=== PATIENT | female | born 1960 | race African-American/Black ===

== ENCOUNTER 2017-06-20 12:25 | Emergency (ER) | payer SELFPAY ==
[2017-06-20] MEDS ORDERED: ASPIRIN 81 MG TABLET, CHEWABLE PO ONE (12:43)
--- NOTE | 2017-06-20 12:54 | ER Document Report ---
ED Medical Screen (RME) - General Chief Complaint: Chest Pain Stated Complaint: CHEST PAIN Time Seen by Provider: 06/20/17 12:42 Notes: RME DISCLOSURE I have seen this patient as part of a Rapid Medical Evaluation and, if applicable, placed any initially appropriate orders. The patient will be seen and fully evaluated, including a full history and physical exam, by a provider ( in Main ED or Fast Track) when a room becomes available. 56F here w several days of L sided non rad CP worse with breathing but not with exertion. She recently traveled via car to [place] which is a [address] She has no prior history of PE DVT or MD. - Related Data Allergies/Adverse Reactions: Sulfa (Sulfonamide Antibiotics) Allergy (Verified 06/20/17 12:28) Past Medical History - Social History Chew tobacco use (# tins/day): No Frequency of alcohol use: Heavy Drug Abuse: None Renal/ Medical History: Denies: Hx Peritoneal Dialysis Physical Exam - Vital signs Vitals: Temp Pulse Resp BP Pulse Ox 98.1 F 71 16 125/71 95 06/20/17 12:36 06/20/17 12:36 06/20/17 12:36 06/20/17 12:36 06/20/17 12:36 Course - Vital Signs Vital signs: Temp Pulse Resp BP Pulse Ox 98.1 F 71 16 125/71 95 06/20/17 12:36 06/20/17 12:36 06/20/17 12:36 06/20/17 12:36 06/20/17 12:36
[2017-06-20 13:11] LABS: ABSOLUTE BASOPHILS # (AUTO) 0.1 10^3/uL (0.0-0.2); ABSOLUTE EOSINOPHILS # (AUTO) 0.1 10^3/uL (0.0-0.6); ABSOLUTE MONOCYTES (AUTO) 0.4 10^3/uL (0.1-1.4); ABSOLUTE NEUT (AUTO) 2.2 10^3/uL (1.7-8.2); BASOPHILS % (AUTO) 1.2 % (0-2); EOSINOPHILS % (AUTO) 2.4 % (0-6); HEMATOCRIT 47.5 % (36.0-47.0); HEMOGLOBIN 15.7 g/dL (12.0-15.5); LYMPHOCYTES % (AUTO) 51.1 % (13-45); MEAN CORPUSCULAR HEMOGLOBIN 27.8 pg (27.0-33.4); MEAN CORPUSCULAR VOLUME 84 fl (80-97); MONOCYTES % (AUTO) 7.3 % (3-13); PLATELET COUNT 322 10^3/uL (150-450); RED BLOOD COUNT 5.65 10^6/uL (3.72-5.28); TOTAL CELLS COUNTED % (AUTO) 100 %; WHITE BLOOD COUNT 5.8 10^3/uL (4.0-10.5)
[2017-06-20 13:30] LABS: ANION GAP 9 (5-19); BLOOD UREA NITROGEN 10 mg/dL (7-20); CALCIUM 9.3 mg/dL (8.4-10.2); CARBON DIOXIDE 28 mmol/L (22-30); CHLORIDE 106 mmol/L (98-107); GLUCOSE 99 mg/dL (75-110); POTASSIUM 4.4 mmol/L (3.6-5.0); SODIUM 142.9 mmol/L (137-145)
--- NOTE | 2017-06-20 13:44 | RADIOLOGY REPORT (SQ) ---
EXAM DESCRIPTION: CHEST PA/LAT COMPLETED DATE/TIME: 06/20/2017 1:33 pm REASON FOR STUDY: L sided CP COMPARISON: None. EXAM PARAMETERS: NUMBER OF VIEWS: two views TECHNIQUE: Digital Frontal and Lateral radiographic views of the chest acquired. RADIATION DOSE: NA LIMITATIONS: none FINDINGS: LUNGS AND PLEURA: Mild interstitial prominence, probably chronic. No focal infiltrates, m asses or pneumothorax. No pleural effusion. MEDIASTINUM AND HILAR STRUCTURES: No masses or contour abnormalities. HEART AND VASCULAR STRUCTURES: Heart normal size. No evidence for failure. BONES: No acute findings. Degenerative changes in the spine. HARDWARE: None in the chest. OTHER: No other significant finding. IMPRESSION: NO SIGNIFICANT RADIOGRAPHIC FINDING IN THE CHEST. TECHNICAL DOCUMENTATION: JOB ID: [id number] [employer]- All Rights Reserved Reading location - IP/workstation name: [email or web address]
--- NOTE | 2017-06-20 15:21 | ER Document Report ---
ED General - General Chief Complaint: Chest Pain Stated Complaint: CHEST PAIN Time Seen by Provider: 06/20/17 12:42 - HPI Patient complains to provider of: Chest pain dyspnea Notes: Patient coming in with chest pain dyspnea ongoing for approximately 4-48 hours. Patient states recently had a trip to [place] going to [place] where she buried her mother. Patient states increased stress because of this over the last few days. Patient denies any trauma patient states shortness of breath and pain increased with movement and deep breaths. Patient denies any fevers chills nausea vomiting diarrhea. Resting comfortably upon my evaluation vital signs otherwise normal - Related Data Allergies/Adverse Reactions: Sulfa (Sulfonamide Antibiotics) Allergy (Verified 06/20/17 13:12) Past Medical History - Social History Smoking Status: Current Every Day Smoker Chew tobacco use (# tins/day): No Frequency of alcohol use: Heavy Drug Abuse: None Family History: Reviewed & Not Pertinent Patient has suicidal ideation: No Patient has homicidal ideation: No Renal/ Medical History: Denies: Hx Peritoneal Dialysis Past Surgical History: Reports: Hx Tonsillectomy Review of Systems - Review of Systems Constitutional: No symptoms reported EENT: No symptoms reported Cardiovascular: Chest pain Respiratory: No symptoms reported Gastrointestinal: No symptoms reported Genitourinary: No symptoms reported Female Genitourinary: No symptoms reported Musculoskeletal: No symptoms reported Skin: No symptoms reported Hematologic/Lymphatic: No symptoms reported Neurological/Psychological: No symptoms reported -: Yes All other systems reviewed and negative Physical Exam - Vital signs Vitals: Temp Pulse Resp BP Pulse Ox 98.1 F 71 16 125/71 95 06/20/17 12:36 06/20/17 12:36 06/20/17 12:36 06/20/17 12:36 06/20/17 12:36 Interpretation: Normal - General General appearance: Appears well, Alert - HEENT Head: Normocephalic, Atraumatic Eyes: Normal Pupils: PERRL - Respiratory Respiratory status: No respiratory distress Chest status: Nontender Breath sounds: Normal Chest palpation: Normal - Cardiovascular Rhythm: Regular Heart sounds: Normal auscultation Murmur: No - Abdominal Inspection: Normal Distension: No distension Bowel sounds: Normal Tenderness: Nontender Organomegaly: No organomegaly - Back Back: Normal, Nontender - Extremities General upper extremity: Normal inspection, Nontender, Normal color, Normal ROM , Normal temperature General lower extremity: Normal inspection, Nontender, Normal color, Normal ROM , Normal temperature, Normal weight bearing. No: Andrey's sign - Neurological Neuro grossly intact: Yes Cognition: Normal Orientation: AAOx4 Vianca Coma Scale Eye Opening: Spontaneous Vianca Coma Scale Verbal: Oriented Vianca Coma Scale Motor: Obeys Commands [place] Coma Scale Total: 15 Speech: Normal Motor strength normal: LUE, RUE, LLE, RLE Sensory: Normal - Psychological Associated symptoms: Normal affect, Normal mood - Skin Skin Temperature: Warm Skin Moisture: Dry Skin Color: Normal Course - Re-evaluation Re-evalutation: 06/20/17 15:21 The patient has atypical chest pain as the patient's chest pain is not suggestive of pulmonary embolus, cardiac ischemia, aortic dissection, or other serious etiology. Given the extremely low risk of these diagnoses further testing and evaluation for these possibilities does not appear to be indicated at this time. The patient has been instructed to return if the symptoms worsen or change in any way. - Vital Signs Vital signs: Temp Pulse Resp BP Pulse Ox 98.1 F 71 18 144/83 H 96 06/20/17 12:36 06/20/17 12:36 06/20/17 14:01 06/20/17 14:00 06/20/17 14:01 - Laboratory Result Diagrams: 06/20/17 12:55 06/20/17 12:55 Laboratory results interpreted by me: 06/20/17 12:55 RBC 5.65 H Hgb 15.7 H Hct 47.5 H RDW 15.0 H Seg Neutrophils % 38.0 L Lymphocytes % 51.1 H Discharge - Discharge Clinical Impression: Chest wall pain Dyspnea Qualifiers: Dyspnea type: unspecified Qualified Code(s): R06.00 - Dyspnea, unspecified Condition: Good Disposition: HOME, SELF-CARE Instructions: Anti-Inflammatory Medication ([facility]), Chest Pain of Unclear Cause ( [facility]), Chest Wall Pain ([facility]) Additional Instructions: Please follow-up with the resources provided. Return to ER symptoms worsen he may take Tylenol Motrin for pain control. Forms: Return to Work
--- NOTE | 2017-06-20 15:38 | PSYCHOLOGICAL NOTE ---
Psych Note - Psych Note Psych Note: Reason for Consult: Grief Consent Permissions: none given Pt arrived to ED c/o chest pain for about 1 week. pt states she has increased stress in life with pt mother passing away. Pt states pain is constant to left chest. Patient disclosed that her mother on May 30. She states that she drove to [place] to [place] her mother on the and drove back on the . She states that for a while she is trying to drink away her sorrow however denies drinking anything within the last week. She states she moved to [place] in January because her mother was put in hospice and she came to be her caregiver. She disclosed difficulties with dealing of her mother's . And has no plans in returning to [place] where the rest of the family are stating "I never got a chance to sightsee [place] and I really like the quiet." Patient disclosed that she has no thoughts of harming herself or others is just having a very difficult time with her sadness. Clinician discussed stages of grief with patient. Patient is alert and orientated to person, place, time and circumstance. Mood is dysphoric with tearful affect. Patient denies suicidal and homicidal ideation. Delusions are absent and behaviors congruent with an intact reality based presentation i.e. organized, linear, rational thinking. Eye contact was well-maintained. Conversational speech was within normal rate, tone and prosody. Intellectual abilities appear to be within the average range. Attention and concentration were good. 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 Patient spoke at great length with clinician about her emotions surrounding recently losing her mother. Clinician discussed the stages of grief and provided handout for patient to read at a later time. Patient declined outpatient mental health resource list stating that the hospice team is going to be providing aftercare up to 15 months. Patient confirms if there are some difficulties she will not hesitate in calling for a resource list for her provider. Patient denies wanting to harm herself or others; patient's presentation and dysphoric mood correlates with the recent loss of her mother. Dr. Campa was consulted and the care management of this patient; attending physician is agreement with recommendations and disposition.
[2017-06-20 16:04] VITALS: BP 122/78
--- NOTE | 2017-06-20 22:01 | EKG REPORT ---
SEVERITY:- NORMAL ECG - SINUS RHYTHM : Confirmed by: Daryl Farmer 20-Jun-2017 22:01:01
== END 2017-06-20 16:03 | disposition home or self-care (01) ==
LOC: ER 12:25
DX: R07.89 Other chest pain (principal); R06.02 Shortness of breath; F17.200 Nicotine dependence, unspecified, uncomplicated; Z88.2 Allergy status to sulfonamides
CPT/HCPCS: 36415; 71046; 80048; 84484; 85025; 85379; 93005; 93010; 99285

== ENCOUNTER 2018-11-26 14:53 | Emergency (ER) | payer SELFPAY ==
[2018-11-26] MEDS ORDERED: ONDANSETRON HCL INJ/PF 4 MG/2 ML SDV IV ONE (15:21)
--- NOTE | 2018-11-26 15:34 | ER Document Report ---
ED General - General Chief Complaint: Dizziness Stated Complaint: DIZZY Time Seen by Provider: 11/26/18 15:20 Primary Care Provider: [facility] [Provider Group] - Follow up as needed Mode of Arrival: Ambulatory Information source: Patient Notes: Patient is a 58-year-old female presented to the emergency department with multiple complaints today. She is complaining of chest pain that began on Saturday and radiated to her right arm. She reports the pain went away and then yesterday she had chest pain again radiating to the left arm. She also reports dizziness and a spinning sensation in her head. She reports associated nausea but denies any vomiting. Patient has not had fever or diarrhea. She does report a history of vertigo, states this feels somewhat similar. She does not have a local primary care provider, she does not have a senior contract specialist. She denies any daily medications. She does report she had a history of hernia repair and a tonsillectomy. She is also complaining of a possible new hernia in her abdomen although she reports that it is reducible. - Related Data Allergies/Adverse Reactions: Sulfa (Sulfonamide Antibiotics) Allergy (Verified 06/20/17 13:12) Past Medical History - General Information source: Patient - Social History Smoking Status: Current Every Day Smoker Chew tobacco use (# tins/day): No Frequency of alcohol use: None Drug Abuse: None Family History: Reviewed & Not Pertinent Patient has suicidal ideation: No Patient has homicidal ideation: No - Medical History Medical History: Negative Renal/ Medical History: Denies: Hx Peritoneal Dialysis Past Surgical History: Reports: Hx Tonsillectomy - Immunizations Immunizations up to date: Yes Review of Systems - Review of Systems Constitutional: See HPI EENT: No symptoms reported Cardiovascular: See HPI Gastrointestinal: No symptoms reported Genitourinary: No symptoms reported Female Genitourinary: No symptoms reported Musculoskeletal: No symptoms reported Skin: No symptoms reported Hematologic/Lymphatic: No symptoms reported Neurological/Psychological: No symptoms reported Physical Exam - Vital signs Vitals: Temp 97.5 F 11/26/18 15:08 - Notes Notes: PHYSICAL EXAMINATION: GENERAL: Well-appearing, well-nourished and in no acute distress. HEAD: Atraumatic, normocephalic. EYES: Pupils equal round and reactive to light, extraocular movements intact, conjunctiva are normal. ENT: Nares patent, oropharynx clear without exudates. Moist mucous membranes. NECK: Normal range of motion, supple without lymphadenopathy LUNGS: Breath sounds clear to auscultation bilaterally and equal. No wheezes rales or rhonchi. HEART: Regular rate and rhythm without murmurs ABDOMEN: Soft, nontender, nondistended abdomen. No guarding, no rebound. No masses appreciated. Female : deferred Musculoskeletal: Normal range of motion, no pitting or edema. No cyanosis. NEUROLOGICAL: Cranial nerves grossly intact. Normal speech, normal gait. Normal sensory, motor exams PSYCH: Normal mood, normal affect. SKIN: Warm, Dry, normal turgor, no rashes or lesions noted. Course - Re-evaluation Re-evalutation: Laboratory 11/26/18 11/26/18 11/26/18 15:18 15:18 15:18 WBC 6.3 RBC 5.42 H Hgb 15.0 Hct 46.2 MCV 85 MCH 27.7 MCHC 32.5 RDW 15.3 H Plt Count 290 Seg Neutrophils % 53.3 Lymphocytes % 39.2 Monocytes % 4.8 Eosinophils % 1.7 Basophils % 1.0 Absolute Neutrophils 3.4 Absolute Lymphocytes 2.5 Absolute Monocytes 0.3 Absolute Eosinophils 0.1 Absolute Basophils 0.1 Sodium 138.1 Potassium 4.4 Chloride 108 H Carbon Dioxide 24 Anion Gap 6 BUN 12 Creatinine 0.69 Est GFR ( Amer) > 60 Est GFR (Non-Af Amer) > 60 Glucose 146 H Calcium 9.3 Total Bilirubin 0.5 Direct Bilirubin 0.2 Neonat Total Bilirubin Not Reportable Neonat Direct Bilirubin Not Reportable Neonat Indirect Bili Not Reportable AST 25 ALT 22 Alkaline Phosphatase 88 Creatine Kinase 94 CK-MB (CK-2) 0.38 Troponin I < 0.012 Total Protein 7.1 Albumin 4.1 Abdomen Ultrasound 11/26/18 16:09 IMPRESSION: Possible ventral hernia in the right upper quadrant. Consider CT to confirm this. 11/26/18 18:40 EKG was reviewed by me, shows a sinus rhythm, rate of 74, QTc 444, normal axis, no ST segment elevations or depressions to suggest ischemia. Patient has a negative work-up here today. She has a low heart score. Currently she has no chest pain. I will treat her dizziness with meclizine and have her follow-up with the [facility]. Patient verbalizes understanding and agreeme nt with this plan. ED return precautions were discussed. The patient's emergency department workup and current diagnosis were explained to the patient and or family. Follow-up instructions were provided. Medications if prescribed were discussed. Instructions for when to return to the emergency department including specific worrisome symptoms were discussed with the patient and/or family. - Vital Signs Vital signs: Temp Pulse Resp BP Pulse Ox 98.1 F 80 18 122/79 99 11/26/18 19:07 11/26/18 19:07 11/26/18 19:07 11/26/18 19:07 11/26/18 19:07 - Laboratory Result Diagrams: 11/26/18 15:18 11/26/18 15:18 Laboratory results interpreted by me: 11/26/18 11/26/18 11/26/18 15:18 15:18 17:20 RBC 5.42 H RDW 15.3 H Chloride 108 H Glucose 146 H Urine Blood MODERATE H Ur Leukocyte Esterase TRACE H Discharge - Discharge Clinical Impression: Vertigo Chest pain Qualifiers: Chest pain type: unspecified Qualified Code(s): R07.9 - Chest pain, unspecified Condition: Stable Disposition: HOME, SELF-CARE Additional Instructions: Chest Pain of Unclear Cause The exact cause of your chest pain isn't clear. Fortunately, there is no evidence of a dangerous medical condition. Further testing may be required to find the source of the pain. Most often, we find that this pain is coming from the chest wall -- the muscles or rib joints in the chest. But chest pain can come from the lung and lung lining, the esophagus, the heart valves or heart lining, and even the stomach or gallbladder. Rest. Eat lightly until the pain is gone. We may prescribe medicine for pain and inflammation. You should call the physician immediately if the pain radiates to the shoulder, jaw or arms; if you start to run a fever or develop a cough; or if you develop shortness of breath, or other new or alarming symptoms. Meclizine You are to take meclizine (Antivert, Bonine) for control of symptoms. This is a drug of the antihistamine family which is useful for controlling nausea, dizziness, and motion sickness. Meclizine is usually taken three times a day, as needed. It's more effective at preventing symptoms than at relieving severe symptoms once they occur. It can be taken BEFORE activities which are likely to cause dizziness or nausea. Common side effects of this medicine are drowsiness and dry mouth. You should use caution in driving or operating machinery while taking this medication. In particular, you should not drive long distances or drive at night while taking this medicine. Meclizine should not be combined with alcohol, narcotics, or sedative medications without consulting your physician. Your work-up here in the emergency department was unremarkable. The ultrasound did show that you have a ventral hernia. You may want to consider following up with the surgical clinic if this becomes bothersome to you. Please take meclizine as prescribed for control of your dizziness. Call the [facility] to set up a follow-up appointment. Return to the emergency department with any new or worsening symptoms. Prescriptions: Meclizine HCl [Antivert 25 mg Tablet] 25 mg PO TID PRN #21 tablet PRN Reason: Referrals: [facility] [Provider Group] - Follow up as needed
[2018-11-26 15:36] LABS: ABSOLUTE BASOPHILS # (AUTO) 0.1 10^3/uL (0.0-0.2); ABSOLUTE EOSINOPHILS # (AUTO) 0.1 10^3/uL (0.0-0.6); ABSOLUTE LYMPHOCYTES (AUTO) 2.5 10^3/uL (0.5-4.7); ABSOLUTE MONOCYTES (AUTO) 0.3 10^3/uL (0.1-1.4); ABSOLUTE NEUT (AUTO) 3.4 10^3/uL (1.7-8.2); EOSINOPHILS % (AUTO) 1.7 % (0-6); HEMATOCRIT 46.2 % (36.0-47.0); LYMPHOCYTES % (AUTO) 39.2 % (13-45); MEAN CORPUSCULAR HEMOGLOBIN 27.7 pg (27.0-33.4); MEAN CORPUSCULAR HGB CONC 32.5 g/dL (32.0-36.0); MEAN CORPUSCULAR VOLUME 85 fl (80-97); MONOCYTES % (AUTO) 4.8 % (3-13); PLATELET COUNT 290 10^3/uL (150-450); RED BLOOD COUNT 5.42 10^6/uL (3.72-5.28); RED CELL DISTRIBUTION WIDTH 15.3 % (11.5-14.0); SEGMENTED NEUTROPHILS % (AUTO) 53.3 % (42-78); TOTAL CELLS COUNTED % (AUTO) 100 %; WHITE BLOOD COUNT 6.3 10^3/uL (4.0-10.5)
[2018-11-26 15:52] LABS: ALBUMIN 4.1 g/dL (3.5-5.0); ALKALINE PHOSPHATASE 88 U/L (38-126); ANION GAP 6 (5-19); ASPARTATE AMINO TRANSFERASE 25 U/L (14-36); BILIRUBIN,DIRECT 0.2 mg/dL (0.0-0.4); BILIRUBIN,TOTAL 0.5 mg/dL (0.2-1.3); BLOOD UREA NITROGEN 12 mg/dL (7-20); CALCIUM 9.3 mg/dL (8.4-10.2); CARBON DIOXIDE 24 mmol/L (22-30); CHLORIDE 108 mmol/L (98-107); CREATINE KINASE 94 U/L (30-135); GLUCOSE 146 mg/dL (75-110); POTASSIUM 4.4 mmol/L (3.6-5.0); TOTAL PROTEIN 7.1 g/dL (6.3-8.2)
[2018-11-26 16:07] LABS: CREATINE KINASE MB 0.38 ng/mL (<4.55)
[2018-11-26 16:08] LABS: TROPONIN I < 0.012 ng/mL
--- NOTE | 2018-11-26 18:07 | RADIOLOGY REPORT (SQ) ---
EXAM DESCRIPTION: U/S ABDOMEN LIMITED W/O DOP COMPLETED DATE/TIME: 11/26/2018 5:50 pm REASON FOR STUDY: eval for hernia COMPARISON: None. TECHNIQUE: Dynamic and static grayscale images acquired of the abdomen and recorded on PACS. Aliciao tre selected color Doppler and spectral images recorded. LIMITATIONS: None. FINDINGS: Imaging of the area of concern right upper quadrant shows approximately 6.5 x 4.2 x 2.9 cm area containing a small amount of fluid. This may represent a fat containing hernia. IMPRESSION: Possible ventral hernia in the right upper quadrant. Consider CT to confirm this. TECHNICAL DOCUMENTATION: JOB ID: [id number] [employer]- All Rights Reserved Reading location - IP/workstation name: [email or web address]
[2018-11-26] MEDS ORDERED: MECLIZINE HCL 25 MG TABLET PO ONE (18:29)
[2018-11-26 18:55] LABS: APPEARANCE,URINE SLIGHTLY-CLOUDY; BILIRUBIN,URINE NEGATIVE (NEGATIVE); COLOR,URINE YELLOW; GLUCOSE, URINE NEGATIVE (NEGATIVE); KETONES,URINE NEGATIVE (NEGATIVE); LEUKOCYTE ESTERASE,URINE TRACE (NEGATIVE); NITRITE,URINE NEGATIVE (NEGATIVE); PROTEIN,URINE NEGATIVE (NEGATIVE); URINE SPECIFIC GRAVITY 1.016; UROBILINOGEN,URINE NEGATIVE mg/dL (<2.0)
[2018-11-26 19:08] VITALS: BP 122/79
--- NOTE | 2018-11-27 11:23 | EKG REPORT ---
SEVERITY:- NORMAL ECG - SINUS RHYTHM : Confirmed by: Daryl Farmer 27-Nov-2018 11:21:47
== END 2018-11-26 19:08 | disposition home or self-care (01) ==
LOC: ER 14:53
DX: R42 Dizziness and giddiness (principal); R07.9 Chest pain, unspecified; F17.200 Nicotine dependence, unspecified, uncomplicated; Z88.2 Allergy status to sulfonamides
CPT/HCPCS: 93005; 99284; 96374; 36415; 82553; 82550; 85025; 80053; 81001; 84484; 76705; 93010; J2405